=== PATIENT | female | born 1965 | race Caucasian/White ===

== ENCOUNTER 2018-11-20 06:06 | Day surgery (SDC) | payer SELFPAY ==
[~2018-11-20] VITALS: Ht 162.6 cm; Wt 95.3 kg
[~2018-11-20 06:06] MED LIST: BL IBUPROFEN200 MG PO; DAILY VITAMIN PO; LEVOTHYROXIN50 MC1 PO; METFORMIN500 MG PO
[2018-11-20 08:13] VITALS: BP 114/68
== END 2018-11-20 08:20 | disposition home or self-care (01) | DRG 395 ==
LOC: ENDO 06:06 → ORM 08:00 → ENDO 08:20
PROVIDERS: ATTEND Surgery
PROC: 0DBL8ZX Excision of Transverse Colon, Via Natural or Artificial Opening Endoscopic, Diagnostic (ICD-10-PCS; principal; 2018-11-20)
DX: D12.3 Benign neoplasm of transverse colon (principal); K64.8 Other hemorrhoids; E11.9 Type 2 diabetes mellitus without complications; Z79.84 Long term (current) use of oral hypoglycemic drugs